=== PATIENT | male | born 1975 | race Caucasian/White ===

== ENCOUNTER 2017-10-08 13:42 | Emergency (ER) | payer OTHER ==
[~2017-10-08] VITALS: Ht 182.9 cm; Wt 103.0 kg
[2017-10-08] MEDS ORDERED: ASPI81TA31 PO (14:01)
[2017-10-08] MEDS ORDERED: ERGO500040 PO (14:01)
[2017-10-08] MEDS ORDERED: ALPR0.5T8 PO (14:01)
--- NOTE | 2017-10-08 14:03 | NUR ---
DR METZGER AT BEDSIDE FOR EVALUATION.
[2017-10-08 14:13] VITALS: BP 128/95
--- NOTE | 2017-10-08 14:20 | NUR ---
Patient discharged to home in stable conditon. Written and verbal after care instructions given. Patient verbalizes understanding of instructions. Will follow up with PMD for medication. No SOB. No CP.
== END 2017-10-08 14:22 | disposition home or self-care (01) ==
LOC: ER 13:42
DX: I82.4Z2 Acute embolism and thrombosis of unspecified deep veins of left distal lower extremity (principal); F17.200 Nicotine dependence, unspecified, uncomplicated; Z79.01 Long term (current) use of anticoagulants; Z79.82 Long term (current) use of aspirin
CPT/HCPCS: A4663